=== PATIENT | female | born 1995 | race Caucasian/White ===

== ENCOUNTER 2024-08-08 17:30 | Emergency (ER) | payer OTHER, SELFPAY ==
[2024-08-08 17:32] VITALS: BP 145/79
[2024-08-08 17:47] LABS: % Basophils 0.3 % (0-2); % Eosinophils 1.4 % (0-6); % Immature Granulocytes 0.3 % (0-0.5); % Lymphocytes 20.8 % (20.5-51.1); % Neutrophils 68.2 % (42.2-75.2); Absolute Eosinophils 0.2 10^3/uL (0-0.7); Absolute Lymphocytes 2.3 10^3/uL (1.2-3.4); Absolute Neutrophils 7.6 10^3/uL (1.4-6.5); Hemoglobin 12.9 g/dL (12.0-16.0); Mean Corp Hgb Conc. 34.9 g/dL (33.0-37.0); Mean Corpuscular Hgb 30.2 pg (27.0-31.0); Mean Corpuscular Volume 86.7 fL (81.0-99.0); Mean Platelet Volume 8.2 fL (7.4-10.4); Nucleated Red Blood Cells % 0 %; Platelet Count 277 10^3/uL (130-400); Red Blood Cell Count 4.27 10^6/uL (4.20-5.40); White Blood Cell Count 11.1 10^3/uL (4.8-10.8)
[2024-08-08 18:46] VITALS: BP 121/71; BMI 27.6
--- NOTE | 2024-08-08 18:49 | EDRN ---
Pt says she is 12-13 weeks with first child. Pt had a normal US 4 days ago and normal genetic testing. Pt took a nap and woke around 1630 to go to the bathroom. Pt wiped and noted brown on the paper. Pt then saw 2 quarter sized areas of
dried brown spots on her underwear. No red blood or clots. Pt called OBGYN and decided to come to ED for evaluation. Pt adds last night she sneezed 3 times and felt a quick sharp jab in her R groin. No pain since. Pt urinated after US in ED and
says she did not have any more spotting. No cp, sob, abd pain, n/v, fever/chills/cough, weakness, dizziness.
--- NOTE | 2024-08-08 19:01 | ED.GENMED ---
History of Present Illness
General
Chief Complaint: Problems
Source: patient and spouse
Time Seen by Provider: 08/08/24 18:41
History of Present Illness
History of Present Illness:
29-year-old female with past medical history of anxiety presenting to the emergency department for evaluation after light vaginal spotting started today, patient is approximately 13 weeks , has seen her outdoor adventure guides and had an ultrasound
done earlier this week which showed a single live intrauterine without any reported complications. Patient describes the spotting more as a dark brown vaginal discharge. No current abdominal pain. Denies any fevers or infectious
symptoms. This is patient's first . Denies any history of miscarriages, abortions or ectopic pregnancies.
Past History
Past History
ED Past Medical History: Other (Pituitary adenoma w/ MEN 1, two third ventricle adenomas with history of seizure disorder in the past)
ED Past Surgical History: Tonsilectomy and Other (Parathyroidectomy in April 2018)
Social History
Tobacco: Non-smoker
Alcohol: None
Drug: None
Personal: Single
Living: with family
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
Review of Systems
Review of Systems
All Other Systems: ROS reviewed and negative except as documented in HPI and ROS
Phy Exam
Physical Exam
Physical Exam:
GENERAL: Alert , in no apparent distress
EYE: conjunctiva clear
Head: Normocephalic atraumatic
NECK: Supple,
ENT: mmm.
LUNGS: no acute respiratory distress
NEUROLOGICAL: Alert and oriented
SKIN: Warm and dry, skin intact.
MUSCULOSKELETAL: well perfused.
PSYCH: Normal and appropriate interaction.
Scores
Heart Failure Risk
Heart Failure Risk Score: Not Applicable
Heart Score for Chest Pain Patients
STEMI patient?: Not applicable
Withdrawal Assessment of Alcohol
Withdrawal Assessment Completed?: Not applicable
Course
Orders/Labs/Results
Orders:
Orders
08/08/24 17:35
US Limited Urgent
Reason For Exam: 13 wk preg; vaginal bleeding
Date of Last Menstrual Period: 04/12/24
08/08/24 17:39
Type+Screen Urgent
Beta HCG Quantitative Urgent
Is this a screen?: No
Complete Blood Count/With Diff Urgent
08/08/24 17:47
ABO2 Urgent
BBK Wristband Number:
Associate notified that ABO2 has been ordered: [id number]
Date: 08/08/24
Time: 17:48
[facility] ID: [id number]
Abnormal Lab Results
08/08/24
17:39
WBC 11.1 H 10^3/uL
(4.8-10.8)
Absolute Neuts (auto) 7.6 H 10^3/uL
(1.4-6.5)
Absolute Monos (auto) 1.0 H 10^3/uL
(0.1-0.6)
08/08/24 17:39
Vital Signs
Initial and Last Documented VS:
Initial Vital Signs
Temp Pulse Resp BP Pulse Ox
98.6 F 89 18 145/79 98
08/08/24 17:32 08/08/24 17:32 08/08/24 17:32 08/08/24 17:32 08/08/24 17:32
Last Documented Vital Signs
Temp Pulse Resp BP Pulse Ox
98.6 F 80 16 121/71 97
08/08/24 17:32 08/08/24 18:46 08/08/24 18:46 08/08/24 18:46 08/08/24 18:46
Information
Weeks gestation: Weeks: (13W2D)
Location: Location: ([facility])
MDM/Problems Addressed
Differential Diagnosis Includes:
Threatened , incomplete , completed miscarriage, I do not have concern for ectopic given patient already had an ultrasound confirming [facility]
MDM/Problems Addressed:
29-year-old female presenting to the emergency department for evaluation of light vaginal spotting that began earlier today. Describes the spotting to be a dark brown. No current pain. Will check labs and ultrasound. Reassessment following
*Radiology
Radiology exam reviewed: radiology read reviewed
*Pulse Oximetry
Patient hypoxic: no
*Critical Care Note
Total Time (30-74mins, 75-104mins- exclusive of procedures): Not Applicable
Patient Management
Escalation/DeEscalation of care consider admission/obs:
Patient's ultrasound shows a single live [facility] with a gestational age of 13 weeks and 2 days. No placental abnormality noted. At this time patient is safe for discharge home. Discussed threatened miscarriage and pelvic rest. Patient already has an
appointment scheduled with her [employer] for this coming Sunday. Advised on return precautions to the ER but otherwise stable for discharge home.
ED Attending Note
-
Portions of this chart may have been created with voice recognition software.� Occasional wrong word or��sound alike� substitutions may have occurred due to the inherent limitations of voice recognition software.
Discharge Plan
Departure
Patient Disposition: Home (Routine Discharge)
Date of Disposition: 08/08/24
Time of Disposition: 19:01
Patient with high blood pressure during this ER visit?: No
Discharge Problem:
Threatened miscarriage
Instructions: Threatened Miscarriage (DC)
Prescriptions:
No Action
1 tab PO DAILY
Referrals:
Tomy Pappas DO [Family Provider] -
Interventions
Interventions:
*Risk Screen - Suicide Last Done: 08/08/24 18:46
*General Assessment Last Done: 08/08/24 18:46
*Neglect/Abuse Screening Last Done: 08/08/24 18:46
*ED COVID-19 Vaccine History Last Done: 08/08/24 18:46
*Nursing Disposition Last Done: 08/08/24 19:11
Discharge Date and Time
Discharge Date/Time: 08/08/24 19:11
Print Language: ARMENIAN
== END 2024-08-08 19:11 | disposition home or self-care (01) ==
LOC: EMR 17:30
PROVIDERS: EMERGENCY PHYSICIAN Emergency Medicine; FAMILY PHYSICIAN Family Medicine
DX: O20.0 Threatened abortion (principal); Z3A.13 13 weeks gestation of pregnancy; O99.351 Diseases of the nervous system complicating pregnancy, first trimester; G40.909 Epilepsy, unspecified, not intractable, without status epilepticus; F41.9 Anxiety disorder, unspecified; Z86.018 Personal history of other benign neoplasm; Z88.0 Allergy status to penicillin; Z91.018 Allergy to other foods
CPT/HCPCS: 99284; 76815; 84702; 85025; 86850; 86900; 86901